=== PATIENT | female | born 1970 | race Two or more races ===

== ENCOUNTER 2016-05-02 19:03 | Emergency (ER) | payer OTHER ==
[2016-05-02 19:11] VITALS: BP 152/111; PULSE 113; RESP 16; TEMP 97.9; O2SAT 99
[2016-05-02] MEDS ORDERED: IBUPROFEN 600 MG TAB PO ONE (19:11)
[2016-05-02 19:26] LABS: COLOR RED; LEUKOCYTE ESTERASE,URINE 1+ (NEGATIVE); NITRITE,URINE POSITIVE (NEGATIVE); PH,URINE 6.5 (5.0-7.5)
[2016-05-02 19:38] LABS: RBC,URINE 50-182 /hpf (0-3)
[2016-05-02 19:40] LABS: BACTERIA 2+ /hpf (NONE SEEN); MUCUS 1+ /lpf (NONE-1+)
--- NOTE | 2016-05-02 19:41 | UCPHY ---
H & P Time Seen by Provider: 05/02/16 19:12 Patient Type: Established HPI/ROS: 45-year-old female presents complaining of urinary urgency, frequency, going very small amounts of urine and painful. This started approximately 2 hours ago. She is concerned about getting treated right away as her last urine infection developed into a kidney infection with multiple complications including severe constipation. Review of systems General no fever no chills no weakness HEENT no eye pain no eye discharge. No eye redness, no sore throat Respiratory no cough, no shortness of breath Cardiac no chest pain, no peripheral edema GI no abdominal pain, no diarrhea, no constipation, no nausea, no vomiting no flank pain, no hematuria, positive dysuria Musculoskeletal no myalgias, no joint pain Heme no easy bruising, no easy bleeding Endo no polyuria, no polydipsia Skin no rashes, no pruritus Neuro no syncope, no dizziness, no headaches Psych is no suicidal ideation, no homicidal ideation Past Medical/Surgical History: Pyelonephritis Hypothyroidism Social History: Denies alcohol or drug use Smoking Status: Never smoked Physical Exam: 45-year-old female in moderate distress secondary to urinary urgency Afebrile, nontoxic appearance Female alert and oriented in no acute distress nontoxic appearance, afebrile Atraumatic normocephalic Neck supple Lungs clear to auscultation bilaterally Heart regular rate and rhythm Abdomen normoactive bowel sounds soft mild suprapubic tenderness no guarding no rebound Back no CVA tenderness Extremities no cyanosis clubbing or edema Skin no rash Constitutional: Initial Vital Signs Temperature (C) 36.6 C 05/02/16 19:07 Heart Rate 113 H 05/02/16 19:07 Respiratory Rate 16 05/02/16 19:07 Blood Pressure 152/111 H 05/02/16 19:07 O2 Sat (%) 99 05/02/16 19:07 O2 Delivery Mode Room Air Allergies/Adverse Reactions: No Known Allergies Allergy (Verified 05/02/16 19:11) Home Medications: Medication Instructions Recorded Cephalexin 500 mg PO TID #21 tablet 05/02/16 Levothyroxine 05/02/16 Phenazopyridine HCl 200 mg PO TID #6 tab 05/02/16 [Phenazopyridine] Medical Decision Making Procedures: Patient seen and evaluated for sudden onset of urinary urgency, frequency going small amounts Patient also currently menstruating Urinalysis positive for UTI Physical exam consistent with UTI Impression UTI Plan Cephalexin Phenazopyridine Given ibuprofen in urgent care Given 1st dose of cephalexin and Pyridium in urgent care Advised to return for worsening symptoms fevers chills vomiting. - Data Points Laboratory Results: 05/02/16 19:15 Urine Color RED Urine Appearance CLOUDY Urine pH 6.5 (5.0-7.5) Ur Specific [place] >= 1.030 (1.002-1.030) Urine Protein 2+ H (NEGATIVE) Urine Ketones NEGATIVE (NEGATIVE) Urine Blood 3+ H (NEGATIVE) Urine Nitrate POSITIVE H (NEGATIVE) Urine Bilirubin NEGATIVE (NEGATIVE) Urine Urobilinogen 1.0 EU EU (0.2-1.0) Ur Leukocyte Esterase 1+ H (NEGATIVE) Urine RBC 50-182 /hpf H /hpf (0-3) Urine WBC 5-10 /hpf H /hpf (0-3) Ur Epithelial Cells 1+ /lpf /lpf (NONE-1+) Urine Bacteria 2+ /hpf H /hpf (NONE SEEN) Urine Mucus 1+ /lpf /lpf (NONE-1+) Ur Culture Indicated? INDICATED H (NI) Urine Glucose NEGATIVE (NEGATIVE) Medications Given: Discontinued Medications Cephalexin (Keflex 500 Mg Prepack#4) 1 btl TAKEHOME EDNOW ONE PRN Reason: Protocol Stop: 05/02/16 19:52 Last Admin: 05/02/16 20:13 Dose: 1 btl Cephalexin HCl (Keflex) 500 mg PO EDNOW ONE PRN Reason: Protocol Stop: 05/02/16 19:50 Last Admin: 05/02/16 20:12 Dose: 500 mg Ibuprofen (Motrin) 600 mg PO EDNOW ONE Stop: 05/02/16 19:12 Last Admin: 05/02/16 19:24 Dose: 600 mg Phenazopyridine HCl (Pyridium) 200 mg PO EDNOW ONE Stop: 05/02/16 19:49 Last Admin: 05/02/16 20:15 Dose: 200 mg Departure - Departure Disposition: Home, Routine, Self-Care Clinical Impression: Urinary tract infection Condition: Good Instructions: Urinary Tract Infection in Women (ED) Referrals: Jen Street [Primary Care Provider] - As per Instructions Prescriptions: Cephalexin 500 mg PO TID #21 tablet Phenazopyridine HCl [Phenazopyridine] 200 mg PO TID #6 tab - PQRS PQRS Measurement: Not applicable
[2016-05-02] MEDS ORDERED: PHENAZOPYRIDINE HCL 200 MG TAB PO ONE (19:48)
[2016-05-02] MEDS ORDERED: CEPHALEXIN 500 MG CAP PO ONE (19:49)
[2016-05-02] MEDS ORDERED: CEPHALEXIN 500MG PREPACK#4 BTL TAKEHOME ONE (19:51)
== END 2016-05-02 20:16 | disposition home or self-care (01) ==
LOC: CED 19:03
DX: N39.0 Urinary tract infection, site not specified (principal)
CPT/HCPCS: 81003-PO; 81015-PO; 99214-PO; G0463-PO

== ENCOUNTER 2016-05-28 19:58 | Emergency (ER) | payer OTHER ==
[2016-05-28 20:47] VITALS: BP 144/108; PULSE 100; RESP 16; TEMP 98.4; O2SAT 95
[2016-05-28] MEDS ORDERED: IBUPROFEN 800 MG TAB PO ONE (20:47)
[2016-05-28] MEDS ORDERED: IBUPROFEN 200 MG TAB PO ONE (20:50)
--- NOTE | 2016-05-28 21:18 | UCPHY ---
H & P Time Seen by Provider: 05/28/16 20:55 Patient Type: New HPI/ROS: This patient presents with a chief complaint of right shoulder, right knee and lower back pain which occurred when she fell several hours ago. She landed on her right side and did not strike her head and has no headache and no neurologic symptoms at this time. She has some right-sided neck pain but denies any chest or abdominal complaints. She has no complaints related to the left upper or lower extremities. Smoking Status: Never smoked Physical Exam: This is a well-developed well-nourished heavy female who appears to be somewhat uncomfortable. She is alert oriented and lucid. Head is atraumatic normocephalic. Neck: There is some tenderness in the lateral left neck extending into the superior trapezius. Chest: Nontender Abdomen: Nontender Extremities: Right knee there is a contusion over the lying the patella with localized swelling. There is no tenderness medially or laterally and there is no collateral laxity. Tenderness is maximal over the patella. Right shoulder: There is no deformity noted tenderness is maximal over the bicipital groove but there is mild tenderness involving the superior trapezius and deltoid areas. CMS is intact distally. Skin is intact and normal. Constitutional: Initial Vital Signs Temperature (C) 36.9 C 05/28/16 20:25 Heart Rate 100 05/28/16 20:25 Respiratory Rate 16 05/28/16 20:25 Blood Pressure 144/108 H 05/28/16 20:25 O2 Sat (%) 95 05/28/16 20:25 O2 Delivery Mode Room Air Allergies/Adverse Reactions: No Known Allergies Allergy (Verified 05/28/16 20:39) Home Medications: Medication Instructions Recorded Levothyroxine 05/02/16 Medical Decision Making - Diagnostics Imaging: X-rays of the right knee, right shoulder and sacrum are all negative for acute injury. There are significant degenerative changes about the knee. ED Course/Re-evaluation: The patient was given a sling for comfort. - Data Points Medications Given: Discontinued Medications Ibuprofen (Motrin) 800 mg PO EDNOW ONE Stop: 05/28/16 20:48 Last Admin: 05/28/16 20:53 Dose: 800 mg Departure - Departure Disposition: Home, Routine, Self-Care Clinical Impression: Right shoulder strain Qualifiers: Encounter type: initial encounter Qualified Code(s): S46.911A - Strain of unspecified muscle, fascia and tendon at shoulder and upper arm level, right arm , initial encounter Knee contusion Qualifiers: Encounter type: initial encounter Laterality: right Qualified Code(s): S80.01XA - Contusion of right knee, initial encounter Low back strain Qualifiers: Encounter type: initial encounter Qualified Code(s): S39.012A - Strain of muscle, fascia and tendon of lower back, initial encounter Condition: Good Instructions: Low Back Strain (ED), Contusion in Adults (ED), Shoulder Sprain ( ED) Additional Instructions: If you are not improving in 5 or 6 days or if your injuries have not resolved in 10 days you should be re-evaluated. Limit her activities for the next 2 or 3 days and thereafter as necessary. Wear the sling for comfort only. Apply ice to the area of injury for 20 minutes every 2 hours for 3 days following your injury. After 3 days (72 hours) it is safe to apply heat frequently throughout the day and I would recommend you're doing so. However if ice feels better it is okay to do this. Elevate the area of the injury as much as possible for the next 2 or 3 days or longer if you have a serious injury. If you have been told that it is safe to use the injured extremity do so in a limited fashion for the first 2-3 days. Afterwards left pain be your guide. Adult Pain & Fever Control: We recommend Acetaminophen (Tylenol) and Ibuprofen (Motrin, Advil) for pain and fever control. When fever is high or pain severe, both drugs can be used at the same time, but at different intervals. Please note the time differences. Your dose is: Acetaminophen [650]mg every 4 to 6 hours ibuprofen [600]mg every [6] hours with food OR naproxen Sodium (Aleve) [440]mg every 12 hours. Note: do not take Acetaminophen with Hydrocodone (Vicodin, Lortab) or Oxycodone (Percocet). These medications also contain Acetaminophen. No more than 3000 mg of Acetaminophen should be taken in 24 hours (for an adult) . The maximal dose of ibuprofen that it is safe in a 24-hour period is 2400 mg. You may take 400 mg every 4 hours, 600 mg every 6 hours or 800 mg every 8 hours safely. Referrals: Jen Street [Primary Care Provider] - As per Instructions Stand Alone Forms: Work Limited Duty, Work Comp Follow Up, Work Excuse - PQRS PQRS Measurement: Not applicable
== END 2016-05-28 22:25 | disposition home or self-care (01) ==
LOC: CED 19:58
DX: S46.911A Strain of unspecified muscle, fascia and tendon at shoulder and upper arm level, right arm, initial encounter (principal); S80.01XA Contusion of right knee, initial encounter; S39.012A Strain of muscle, fascia and tendon of lower back, initial encounter; W19.XXXA Unspecified fall, initial encounter
CPT/HCPCS: 72220-PO; 73030-PO; 73564-PO; 99203-PO; G0463-PO

== ENCOUNTER 2016-06-07 21:55 | Emergency (ER) | payer OTHER ==
--- NOTE | 2016-06-07 22:02 | UCPHY ---
H & P Patient Type: Established HPI/ROS: HPI CHIEF COMPLAINT: Dysuria HISTORY OF PRESENT ILLNESS: The patient very pleasant 45-year-old female she presents to the urgent care with dysuria urinary pressure. Started around 830 this evening. She states the beginning of May she had a urinary tract infection previous to that she had infection 2013 that caused her to have a kidney infection. She denies fever, flank pain, vomiting, nausea. She does complain of dysuria. She is pretty sure she has another urinary tract infection. she denies abdominal pain, back pain, vaginal discharge. Denies being . Past Medical History: Thyroid disease Past Surgical History: Cholecystectomy Social History: denies daily use of drugs alcohol tobacco products Family History: Noncontributory ROS REVIEW OF SYSTEMS: A comprehensive 10 point review of systems is otherwise negative aside from elements mentioned in the history of present illness. Exam Constitutional appears well nontoxic triage nursing summary reviewed, vital signs reviewed, awake/alert. Eyes normal conjunctivae and sclera, EOMI, PERRLA. HENT normal inspection, atraumatic, moist mucus membranes, no epistaxis, neck supple/ no meningismus, no raccoon eyes. Respiratory clear to auscultation bilaterally, normal breath sounds, no respiratory distress, no wheezing. Cardiovascular rate normal, regular rhythm, no murmur, no edema, distal pulses normal. Gastrointestinal soft, non-tender, no rebound, no guarding, normal bowel sounds, no distension, no pulsatile mass. Genitourinary no CVA tenderness. Musculoskeletal no midline vertebral tenderness, full range of motion, no calf swelling, no tenderness of extremities, no meningismus, good pulses, neurovascularly intact. Skin pink, warm, & dry, no rash, skin atraumatic. Neurologic awake, alert and oriented x 3, AAOx3, moves all 4 extremities equally, motor intact, sensory intact, CN II-XII intact, normal cerebellar, normal vision, normal speech. Psychiatric normal mood/affect. Heme/Lymph/Immune no lymphadenopathy. Differential Diagnosis: Includes but is not limited to in a particular order, UTI, cystitis, pyelonephritis. Medical Decision Making: Plan for this patient formal urinalysis, urine test, Re-evaluation: Urinalysis reviewed shows urinary tract infection nitrite positive. Leuks whites and reds. Urine culture sent. Keflex given to her in the urgent care, prescription for Keflex and Pyridium. She understands drink lots of fluids. At this time she appears well nontoxic no flank pain no vomiting no significant abdominal pain safe for discharge she understands if she has worsening symptoms to return to the urgent care or emergency room. Source: Patient - Personal History Tetanus Vaccine Date: within 10 years - Medical/Surgical History Hx Asthma: No Hx Chronic Respiratory Disease: No Hx Diabetes: No Hx Cardiac Disease: No Hx Renal Disease: No Hx Cirrhosis: No Hx Alcoholism: No Hx HIV/AIDS: No Hx Splenectomy or Spleen Trauma: No Other PMH: hypothyroidism, cholecystectomy, L ankle surgery - Family History Significant Family History: No pertinent family hx - Social History Smoking Status: Never smoked Constitutional: Initial Vital Signs Temperature (C) 36.6 C 06/07/16 22:09 Heart Rate 92 06/07/16 22:09 Respiratory Rate 16 06/07/16 22:09 Blood Pressure 154/91 H 06/07/16 22:09 O2 Sat (%) 98 06/07/16 22:09 O2 Delivery Mode Room Air Allergies/Adverse Reactions: No Known Allergies Allergy (Verified 06/07/16 22:09) Home Medications: Medication Instructions Recorded Levothyroxine 05/02/16 Medical Decision Making - Data Points Laboratory Results: 06/07/16 06/07/16 22:25 22:25 Urine Color [place] Urine Appearance CLOUDY Urine pH 6.0 (5.0-7.5) Ur Specific [place] >= 1.030 (1.002-1.030) Urine Protein 2+ H (NEGATIVE) Urine Ketones TRACE H (NEGATIVE) Urine Blood 3+ H (NEGATIVE) Urine Nitrate POSITIVE H (NEGATIVE) Urine Bilirubin NEGATIVE (NEGATIVE) Urine Urobilinogen 0.2 EU EU (0.2-1.0) Ur Leukocyte Esterase 1+ H (NEGATIVE) Urine RBC Pending Urine WBC Pending Ur Epithelial Cells Pending Ur Culture Indicated? INDICATED H (NI) Urine Glucose NEGATIVE (NEGATIVE) Urine Test Pending Medications Given: Discontinued Medications Acetaminophen (Tylenol) 650 mg PO EDNOW ONE Stop: 06/07/16 22:10 Last Admin: 06/07/16 22:17 Dose: 650 mg Departure - Departure Disposition: Home, Routine, Self-Care Clinical Impression: UTI (urinary tract infection) Qualifiers: Urinary tract infection type: acute cystitis Hematuria presence: with hematuria Qualified Code(s): N30.01 - Acute cystitis with hematuria Condition: Good Instructions: Urinary Tract Infection in Women (ED) Additional Instructions: 1. Make sure to drink lots of fluids stay well-hydrated. 2.Return to the emergency room if develops worsening symptoms includes abdominal pain, vomiting, fever, flank pain. Referrals: Jen Street [Primary Care Provider] - As per Instructions - PQRS PQRS Measurement: n/a
[2016-06-07] MEDS ORDERED: ACETAMINOPHEN 325 MG TAB PO ONE (22:09)
[2016-06-07 22:12] VITALS: PULSE 92; RESP 16; TEMP 97.9; O2SAT 98
[2016-06-07 22:17] VITALS: BP 154/91
[2016-06-07 22:32] LABS: LEUKOCYTE ESTERASE,URINE 1+ (NEGATIVE); NITRITE,URINE POSITIVE (NEGATIVE)
[2016-06-07 22:33] LABS: COLOR AMBER
[2016-06-07] MEDS ORDERED: CEPHALEXIN 500 MG CAP PO ONE (22:36)
[2016-06-07] MEDS ORDERED: CEPHALEXIN 500MG PREPACK#4 BTL TAKEHOME ONE (22:36)
[2016-06-07] MEDS ORDERED: PHENAZOPYRIDINE HCL 200 MG TAB PO ONE (22:36)
[2016-06-07 22:45] LABS: BACTERIA 3+ /hpf (NONE SEEN); RBC,URINE >182 /hpf (0-3); WBC,URINE 50-182 /hpf (0-3)
== END 2016-06-07 22:46 | disposition home or self-care (01) ==
LOC: CED 21:55
DX: N30.01 Acute cystitis with hematuria (principal); E07.9 Disorder of thyroid, unspecified
CPT/HCPCS: 81003-PO; 81015-PO; 81025-PO; 99214-PO; G0463-PO

== ENCOUNTER → 2016-06-24 | Outpatient (CLI) | payer OTHER | LOC: BRMIMAGING 12:22 | PROVIDERS: ATTEND Internal Medicine | DX: M17.11 Unilateral primary osteoarthritis, right knee (principal); M25.531 Pain in right wrist | CPT/HCPCS: 73110-PO; 73564-PO ==

== ENCOUNTER 2017-01-08 00:15 | Emergency (ER) | payer OTHER ==
[2017-01-08 00:26] VITALS: BP 137/112; PULSE 102; RESP 18; TEMP 98.1; O2SAT 95
[2017-01-08] MEDS ORDERED: KETOROLAC 15 MG/1 ML SDV IM ONE (00:38)
[2017-01-08] MEDS ORDERED: DIAZEPAM 5 MG TAB PO ONE (00:38)
--- NOTE | 2017-01-08 00:41 | EDPHY ---
H & P Stated Complaint: R SHOULDER PAIN HPI/ROS: HPI The patient presents with right shoulder pain which has been present for the last 1 and 0.5 hours. It awoke her from sleep. The pain is in her right shoulder, radiates up toward her neck in her ear and down to her elbow. She believes it was provoked with a change in position while sleeping. She tried using heat and ice without any improvement. She had taken a Vicodin before bed. She says that she has had this pain before, though this is severe for her. She is trying to decrease her ibuprofen use, previously taking 800 mg every 3 hours now taking about 400 mg twice a day over the last few days, last dose earlier this morning. She is status post rotator cuff operation performed in October of 2016 after rotator cuff injury occurred on the job in May of 2015. She denies any numbness or tingling, weakness. She is working with physical therapy current [place]. REVIEW OF SYSTEMS Constitutional: No fever, no chills. Eyes: No discharge. ENT: No sore throat. Cardiovascular: No chest pain, no palpitations. Respiratory: No cough, no shortness of breath. Gastrointestinal: No abdominal pain, no vomiting. Genitourinary: No hematuria. Musculoskeletal: No back pain. Skin: No rashes. Neurological: No headache. PMHx: Rotator cuff injury status post operation performed in October of [address] marietta Costa Hx: Lives with her family PHYSICAL General Appearance: Alert, pacing around the room, moaning in pain Eyes: Pupils equal and round no pallor or injection ENT, Mouth: Mucous membranes moist Respiratory: There are no retractions, lungs are clear to auscultation Cardiovascular: Regular rate and rhythm Gastrointestinal: Abdomen is soft and non-tender, no masses, bowel sounds normal Neurological: A&O, moves all extremities Skin: Warm and dry, no rashes Musculoskeletal: There is tenderness along the anterior joint line of the right shoulder with limited range of motion secondary to pain, there is tenderness along the right trapezius, there are 2+ radial pulses present, sensation is intact to light touch of the hand, strength is full in flexion and extension Extremities: symmetrical, full range of motion Psychiatric: Patient is oriented X 3, there is no agitation Source: Patient Exam Limitations: No limitations - Personal History LMP (Females 10-55): Unknown Current Tetanus Diphtheria and Acellular Pertussis (TDAP): Yes Tetanus Vaccine Date: within 10 years - Medical/Surgical History Hx Asthma: No Hx Chronic Respiratory Disease: No Hx Diabetes: No Hx Cardiac Disease: No Hx Renal Disease: No Hx Cirrhosis: No Hx Alcoholism: No Hx HIV/AIDS: No Hx Splenectomy or Spleen Trauma: No Other PMH: hypothyroidism, cholecystectomy, L ankle surgery - Social History Smoking Status: Never smoked Constitutional: Initial Vital Signs Temperature (C) 36.7 C 01/08/17 00:24 Heart Rate 102 H 01/08/17 00:24 Respiratory Rate 18 01/08/17 00:24 Blood Pressure 137/112 H 01/08/17 00:24 O2 Sat (%) 95 01/08/17 00:24 O2 Delivery Mode Room Air Allergies/Adverse Reactions: No Known Allergies Allergy (Verified 06/07/16 22:09) Home Medications: Medication Instructions Recorded Levothyroxine 05/02/16 IBUPROFEN 01/08/17 [place] 5/325 (*) 01/08/17 Medical Decision Making Differential Diagnosis: 46-year-old female with history of rotator cuff injury and repair, with ongoing difficulty with pain, presents with acute worsening of her pain which awoke her from sleep tonight when she was repositioning herself in bed. The pain radiates from her shoulder upwards to her neck and down toward her elbow. She does not have any paresthesias, weakness, abnormal pulses on exam. She does not have any chest pain or shortness of breath, making a cardiac cause unlikely. She has had episodes of this pain before associated with her rotator cuff injury. I suspect her pain may be related to lack of NSAIDs which she has been taking quite frequently up until a few days ago. I doubt any acute postsurgical complication such as infection, hematoma, based on my exam. I plan to treat her with Toradol IM and Valium for her muscle spasm. She requests lowest doses possible. I have advised her to increase her ibuprofen dose to 600 mg 3 times a day until she is feeling better. She has an appointment with her physical therapist tomorrow. Departure - Departure Disposition: Home, Routine, Self-Care Clinical Impression: Right shoulder pain Qualifiers: Chronicity: acute Qualified Code(s): M25.511 - Pain in right shoulder Rotator cuff disorder Qualifiers: Laterality: right Qualified Code(s): M67.911 - Unspecified disorder of synovium and tendon, right shoulder Condition: Good Instructions: Shoulder Pain (ED) Additional Instructions: Please follow-up with your worker's Comp doctor in 1-2 days if your pain continues. You should continue with your physical therapy. For the next few days, I recommend you take ibuprofen 600 mg every 6-8 hours as needed for pain. Return to the emergency department if your worse in any way.
== END 2017-01-08 00:58 | disposition home or self-care (01) ==
LOC: CED 00:15
DX: M67.911 Unspecified disorder of synovium and tendon, right shoulder (principal)
CPT/HCPCS: J1885

== ENCOUNTER → 2017-07-20 | Outpatient (CLI) | payer OTHER | LOC: CIMAGING 12:47 | PROVIDERS: ATTEND Family Medicine | DX: N60.01 Solitary cyst of right breast (principal) | CPT/HCPCS: 76641-PO ==